=== PATIENT | female | born 1975 | race Caucasian/White ===

== ENCOUNTER → 2016-07-13 | Outpatient (CLI) | payer BC ==
[~2016-07-13] MED LIST: ALMO1TAB PO; BCPILLS PO; FRRS300 PO; LEVO-519 PO; LEVO150T PO; MULT-506 PO; PRENTAB26 PO; SYN25 PO
[2016-07-13 17:56] LABS: THYROID STIMULATING HORMONE 0.031 uIu/ml (0.300-4.500)
== END | disposition home or self-care (01) ==
LOC: C.LABBC 15:19
PROVIDERS: ATTEND Nurse Practitioner Family
DX: E03.9 Hypothyroidism, unspecified (principal)

== ENCOUNTER → 2016-07-21 | Outpatient (CLI) | payer BC ==
--- NOTE | 2016-07-24 12:41 | MAMMOGRAPHY REPORT ---
BILATERAL DIGITAL SCREENING MAMMOGRAM TOMOSYNTHESIS WITH CAD: 07/21/2016 CLINICAL HISTORY: Routine screening. Patient has no complaints. TECHNIQUE: Breast tomosynthesis in addition to standard 2D mammography was performed. Current study was also evaluated with a Computer Aided Detection (CAD) system. COMPARISON: Comparison is made to exams dated: 07/20/2015 mammogram and 07/10/2014 mammogram - [facility]. BREAST COMPOSITION: The tissue of both breasts is heterogeneously dense, which may obscure small ma sses. FINDINGS: No suspicious masses, calcifications, or areas of architectural distortion are noted in e ither breast. There has been no significant interval change compared to prior exams. Scattered bilat eral benign-appearing calcifications are not significantly changed. IMPRESSION: ACR BI-RADS CATEGORY 2: BENIGN There is no mammographic evidence of malignancy. A 1 year screening mammogram is recommended. The p atient will receive written notification of the results. Approximately 10% of breast cancers are not detected with mammography. A negative mammographic repor t should not delay biopsy if a clinically suggestive mass is present. Izabella Portillo M.D. ah/:07/22/2016 14:39:22 Sulfur Chloride Operator: Meredith CROWDER(R)(M), [facility] letter sent: Normal 1/2 BI-RADS Code: ACR BI-RADS Category 2: Benign
== END | disposition home or self-care (01) ==
LOC: C.MAMM 09:50
PROVIDERS: ATTEND Nurse Practitioner Family
DX: Z12.31 Encounter for screening mammogram for malignant neoplasm of breast (principal)

== ENCOUNTER → 2016-09-27 | Outpatient (CLI) | payer BC ==
--- NOTE | 2016-09-27 10:48 | DIAGNOSTIC IMAGING REPORT ---
STERNUM MIN 2 VIEWS CLINICAL HISTORY: Sternal pain. Trauma. COMPARISON STUDY: No previous studies for comparison. FINDINGS: No sternal fractures are visualized on conventional radiographic imaging. IMPRESSION: No fractures identified. Electronically signed by: Rasheed Frazier M.D. 09/27/2016 10:46 AM Dictated Date/Time: 09/27/2016 10:45 AM
== END | disposition home or self-care (01) ==
LOC: C.RADBC 10:19
PROVIDERS: ATTEND Nurse Practitioner Family
DX: R07.89 Other chest pain (principal)

== ENCOUNTER 2016-10-07 08:31 | Emergency (ER) | payer BC ==
[~2016-10-07] VITALS: Ht 160 cm; Wt 62.0 kg
[~2016-10-07 08:31] MED LIST changes: -ALMO1TAB PO; -BCPILLS PO; -LEVO-519 PO; -LEVO150T PO; -MULT-506 PO
[2016-10-07 08:36] VITALS: TEMP 36.9; Ht 160 cm; Wt 62.0 kg
[2016-10-07] MEDS ORDERED: LEVO-519 PO (08:37)
[2016-10-07] MEDS ORDERED: LEVO150T PO (08:37)
[2016-10-07] MEDS ORDERED: ALMO1TAB PO (08:37)
[2016-10-07] MEDS ORDERED: MULT-506 PO (08:37)
[2016-10-07] MEDS ORDERED: BCPILLS PO (08:37)
[2016-10-07 09:30] LABS: BASO % 0.5 %; BASO ABS # 0.02 K/uL (0-0.2); COMPLETE YES; EOS % 2.6 %; HEMATOCRIT 35.8 % (37-47); IG% 0.3 %; LYMPH % 32.8 %; LYMPH ABS # 1.25 K/uL (1.2-3.4); MEAN CELL VOLUME 83.6 fL (80-100); MEAN CORPUSCULAR HEMOGLOBIN 29.7 pg (25-34); MEAN CORPUSCULAR HGB CONC 35.5 g/dl (32-36); MEAN PLATELET VOLUME 9.7 fL (7.4-10.4); MONO % 3.4 %; NEUT % 60.4 %; PLATELET COUNT 157 K/uL (130-400); RED BLOOD COUNT 4.28 M/uL (4.2-5.4); WHITE BLOOD COUNT 3.81 K/uL (4.8-10.8)
[2016-10-07 09:53] LABS: CALCIUM 8.3 mg/dl (8.5-10.1); CREATININE 0.74 mg/dl (0.60-1.20)
[2016-10-07 09:59] LABS: URINE APPEARANCE CLEAR (CLEAR); URINE BILIRUBIN NEG (NEG); URINE COLOR YELLOW; URINE NITRITE NEG (NEG); URINE PH 6.5 (4.5-7.5); URINE SPECIFIC GRAVITY 1.027 (1.000-1.030); UROBILINOGEN NEG (NEG)
[2016-10-07 10:03] LABS: THYROID STIMULATING HORMONE 0.037 uIu/ml (0.300-4.500)
[2016-10-07 10:12] LABS: MANUAL MICROSCOPIC REQUIRED? NO; REVIEW REQ? NO
--- NOTE | 2016-10-07 11:04 | DIAGNOSTIC IMAGING REPORT ---
HEAD CT NONCONTRAST CT DOSE: 537.48 mGy.cm HISTORY: dizziness TECHNIQUE: Multiaxial CT images of the head were performed without the use of intravenous contrast. Automated exposure control was utilized for this study. Comparison: None. Findings: The paranasal sinuses and mastoid air cells are clear. The calvarium and skull base are intact. The ventricles and sulci are within normal limits. There is no mass, hematoma, midline shift, or acute infarct. Impression: No acute intracranial abnormality. Electronically signed by: Randy Winchester M.D. 10/07/2016 11:03 AM Dictated Date/Time: 10/07/2016 10:58 AM
[2016-10-07 11:52] VITALS: BP 126/77; PULSE 83; O2SAT 98
--- NOTE | 2016-10-07 17:54 | EMERGENCY ROOM VISIT NOTE ---
History First contact with patient: 08:44 Chief Complaint: DIZZY Stated Complaint: DIZZY, SWEATS, NAUSEA-SENT BY PCP Nursing Triage Summary: Relates that she has had a second episode of the "room spinning". She indicates that the first episode was when she fell on her coffee cup in the chest area. She relates that she felt dizzy that night after the episode. She did go to her PCP. He told her that with the next episode she needs to go to the ER. She relates that the room was spinning and continued to spin even after she layed on the couch. Currently she feels she has improved but still does not feel right. History of Present Illness The patient is a 41 year old white female who presents to the Emergency Room with complaints of dizziness that occurred this morning when she got up. She states it lasted about an hour. It has resolved. She states she still does not feel quite right, but is no longer dizzy. She had a similar episode on Sunday. She fell earlier that morning after slipping on the grass. She fell forward and landed on her chest, pinning her coffee cup between the ground and her chest. She does not believe she struck her head. She had dizziness that night. She saw her PCP later that week but symptoms had resolved. She was told that if the dizziness occurs again, she should go to the ED. She denies any upper respiratory symptoms. No fever, chills, vomiting, diarrhea , abdominal pain, ear pain, head pressure, or difficulty swallowing. She had sweats and nausea this morning. No recent head trauma. Review of Systems REVIEW OF SYSTEM: HEENT: No hearing loss, or tinnitus. There is no difficulty swallowing and no oral lesions are present. LYMPH: No adenopathy. PULMONARY: No cough, shortness of breath, sputum production or hemoptysis. CARDIOVASCULAR: No chest pain, palpitations, shortness of breath or peripheral edema. GASTROINTESTINAL: No diarrhea, constipation, vomiting, or abdominal pain. GENITOURINARY: No dysuria, frequency, urgency or nocturia. NEUROLOGIC: No weakness, muscle tenderness, epilepsy or history of neurological problems. MUSCULOSKELETAL: No history of joint tenderness/swelling. No history of arthritis or arthralgias. SKIN: No rashes or lesions. PSYCHIATRIC: No history of depression or mental illness. ENDOCRINE: No history of diabetes, thyroid disorders, or abnormal hair growth. Past Medical/Surgical History Previous surgeries: None Medical history: Significant for hypothyroidism Family History Noncontributory. Social History Smoking Status: Never Smoker Smokeless Tobacco Use: No Alcohol Use: occasionally Drug Use: none Marital Status: Housing Status: lives with family Occupation Status: employed Current/Historical Medications Scheduled Almotriptan Malate (Axert), 12.5 MG PO DIRECTED Control Pills ( Control Pills), 1 TAB PO DAILY Levothyroxine Sodium (Synthroid), 150 MCG PO Q2D Levothyroxine Sodium (Synthroid), 137 MCG PO Q2D Multivitamin (Multivitamin), 1 TAB PO DAILY Allergies Coded Allergies: No Known Allergies (Verified , 10/07/16) Physical Exam Vital Signs Date Time Temp Pulse Resp B/P Pulse Ox O2 Delivery O2 Flow Rate FiO2 10/07/16 11:52 83 16 126/77 98 Room Air 10/07/16 10:12 88 20 119/83 98 Room Air 10/07/16 08:36 36.9 81 18 164/95 99 Room Air Physical Exam Gen.: Well-developed, well-nourished, middle-aged white female, in no acute distress. Sitting on a bed. Alert and oriented. Skin:Warm and dry with good turgor. No rashes or lesions. No ecchymosis or erythema. The patient is not diaphoretic. No abrasions. HEENT: Normocephalic atraumatic. Eyes PERRLA, EOMI. No conjunctiva or scleral injection. No nystagmus. Ears TMs intact bilaterally with good light reflexes. No erythema or bulging. No hemotympanum. Canals are patent. Nares patent bilaterally without turbinate enlargement. No significant drainage. No epistaxis. Oropharynx without erythema or exudate. Uvula midline, oral mucosa moist. No lesions present. Lymphatics are palpated without anterior or posterior chain enlargement or tenderness. Heart: Heart RRR. No MGR. No carotid bruit. Peripheral pulses are 2+. Lungs: Lungs are clear to auscultation. No crackles rhonchi or wheezing. Good air movement. The patient is able to take a deep breath. Musculoskeletal: Gross motor function of the upper and lower extremities is intact and unremarkable. Neurologic: Gross sensation is intact across the upper and lower extremities by soft touch. Medical Decision & Procedures ER Provider Diagnostic Interpretation: CT scan imaging of her head was obtained. This was read by radiology as unremarkable. Laboratory Results 10/07/16 09:10 Red Blood Count 4.28, Mean Corpuscular Volume 83.6, Mean Corpuscular Hemoglobin 29.7, Mean Corpuscular Hemoglobin Concent 35.5, Mean Platelet Volume 9.7, Neutrophils (%) (Auto) 60.4, Lymphocytes (%) (Auto) 32.8, Monocytes (%) (Auto) 3.4, Eosinophils (%) (Auto) 2.6, Basophils (%) (Auto) 0.5, Neutrophils # (Auto) 2.30, Lymphocytes # (Auto) 1.25, Monocytes # (Auto) 0.13, Eosinophils # (Auto) 0.10, Basophils # (Auto) 0.02 10/07/16 09:10 Test 10/07/16 09:10 10/07/16 09:15 White Blood Count 3.81 K/uL (4.8-10.8) Red Blood Count 4.28 M/uL (4.2-5.4) Hemoglobin 12.7 g/dL (12.0-16.0) Hematocrit 35.8 % (37-47) Mean Corpuscular Volume 83.6 fL (80-100) Mean Corpuscular Hemoglobin 29.7 pg (25-34) Mean Corpuscular Hemoglobin Concent 35.5 g/dl (32-36) Platelet Count 157 K/uL (130-400) Mean Platelet Volume 9.7 fL (7.4-10.4) Neutrophils (%) (Auto) 60.4 % Lymphocytes (%) (Auto) 32.8 % Monocytes (%) (Auto) 3.4 % Eosinophils (%) (Auto) 2.6 % Basophils (%) (Auto) 0.5 % Neutrophils # (Auto) 2.30 K/uL (1.4-6.5) Lymphocytes # (Auto) 1.25 K/uL (1.2-3.4) Monocytes # (Auto) 0.13 K/uL (0.11-0.59) Eosinophils # (Auto) 0.10 K/uL (0-0.5) Basophils # (Auto) 0.02 K/uL (0-0.2) RDW Standard Deviation 38.4 fL (36.4-46.3) RDW Coefficient of Variation 12.6 % (11.5-14.5) Immature Granulocyte % (Auto) 0.3 % Immature Granulocyte # (Auto) 0.01 K/uL (0.00-0.02) Anion Gap 8.0 mmol/L (3-11) Est Creatinine Clear Calc Drug Dose 81.9 ml/min Estimated GFR () 115.8 Estimated GFR (Non- 99.9 BUN/Creatinine Ratio 20.0 (10-20) Calcium Level 8.3 mg/dl (8.5-10.1) Thyroid Stimulating Hormone (TSH) 0.037 uIu/ml (0.300-4.500) Free Thyroxine 1.63 ng/dl (0.80-1.60) Urine Color YELLOW Urine Appearance CLEAR (CLEAR) Urine pH 6.5 (4.5-7.5) Urine Specific [place] 1.027 (1.000-1.030) Urine Protein NEG (NEG) Urine Glucose (UA) NEG (NEG) Urine Ketones NEG (NEG) Urine Occult Blood NEG (NEG) Urine Nitrite NEG (NEG) Urine Bilirubin NEG (NEG) Urine Urobilinogen NEG (NEG) Urine Leukocyte Esterase NEG (NEG) Urine Test NEG (NEG) CBC, PRP, UA, and urine obtained today were all unremarkable. TSH and free T4 were abnormal, consistent with her previous lab values. ED Course Patient was educated regarding today's findings. Conservative care measures were discussed. IV was established. Labs were obtained. Giving that nothing abnormal was found, she elected to proceed with CT scan of the head after being educated about potential risks and outcomes. This was also unremarkable. She is asymptomatic at this time. She felt well enough to go home. Patient was discharged with instructions to follow-up with her PCP. She may require further evaluation for benign positional vertigo. Option of physical therapy was discussed with her. She may discuss this further with her PCP. Return to the ED if symptoms should become worse. Maintain hydration. Medical Decision Possibility of intracranial bleed, intracranial mass, inner ear infection, sinus infection, electrolyte abnormality, anemia, and thyroid abnormality work considered, among others. Impression Primary Impression: Dizziness Departure Information Referrals Edison Montoya III, CRNP (PCP) Patient Instructions My [facility] [place] [employer]
== END 2016-10-07 12:03 | disposition home or self-care (01) ==
LOC: C.EDB 08:32
DX: R42 Dizziness and giddiness (principal); E03.9 Hypothyroidism, unspecified; Z79.899 Other long term (current) drug therapy

== ENCOUNTER → 2017-01-23 | Outpatient (CLI) | payer BC ==
[~2017-01-23] MED LIST changes: +ALMO1TAB PO; +BCPILLS PO; -FRRS300 PO; +LEVO-519 PO; +LEVO150T PO; +MULT-506 PO; -PRENTAB26 PO; -SYN25 PO
[2017-01-23 14:02] LABS: THYROID STIMULATING HORMONE 0.03 uIu/ml (0.300-4.500)
== END | disposition home or self-care (01) ==
LOC: C.LABBC 12:14
PROVIDERS: ATTEND Internal Medicine Endocrinology, Diabetes & Metabolism
DX: E06.3 Autoimmune thyroiditis (principal)

== ENCOUNTER → 2017-06-23 | Outpatient (CLI) | payer BC | LOC: C.LABSPEC 12:56 | PROVIDERS: ATTEND Family Medicine | DX: J02.9 Acute pharyngitis, unspecified (principal) ==

== ENCOUNTER → 2017-07-06 | Outpatient (CLI) | payer BC | END | disposition home or self-care (01) | LOC: C.PAPS 12:54 | PROVIDERS: ATTEND Obstetrics & Gynecology | DX: Z01.419 Encounter for gynecological examination (general) (routine) without abnormal findings (principal) ==

== ENCOUNTER → 2017-07-17 | Outpatient (CLI) | payer BC | END | disposition home or self-care (01) | LOC: C.LABBFT 09:48 | PROVIDERS: ATTEND Internal Medicine Endocrinology, Diabetes & Metabolism | DX: E55.9 Vitamin D deficiency, unspecified (principal); E03.9 Hypothyroidism, unspecified ==

== ENCOUNTER → 2017-07-23 | Outpatient (CLI) | payer BC ==
--- NOTE | 2017-07-23 15:19 | MAMMOGRAPHY REPORT ---
BILATERAL DIGITAL SCREENING MAMMOGRAM TOMOSYNTHESIS WITH CAD: 07/23/2017 CLINICAL HISTORY: Routine screening. Patient has no complaints. TECHNIQUE: Breast tomosynthesis in addition to standard 2D mammography was performed. Current study was also evaluated with a Computer Aided Detection (CAD) system. COMPARISON: Comparison is made to exams dated: 07/21/2016 mammogram, 07/20/2015 mammogram, and 5 mammogram - [facility]. BREAST COMPOSITION: The tissue of both breasts is heterogeneously dense, which may obscure small mas ses. FINDINGS: The parenchymal pattern is unchanged. No developing mass, architectural distortion or clus ter of suspicious microcalcifications is seen in either breast. IMPRESSION: ACR BI-RADS CATEGORY 2: BENIGN There is no mammographic evidence of malignancy. A 1 year screening mammogram is recommended. The pa tient will receive written notification of the results. Approximately 10% of breast cancers are not detected with mammography. A negative mammographic report should not delay biopsy if a clinically suggestive mass is present. Marzena Lucio M.D. ay/:07/23/2017 12:09:25 Human Services Program Specialist: Vidya CROWDER(Barb)(Fredi), [facility] letter sent: Normal 1/2 BI-RADS Code: ACR BI-RADS Category 2: Benign
== END | disposition home or self-care (01) ==
LOC: C.MAMM 09:08
PROVIDERS: ATTEND Family Medicine
DX: Z12.31 Encounter for screening mammogram for malignant neoplasm of breast (principal)